=== PATIENT | female | born 1960 | race Caucasian/White ===

== ENCOUNTER 2019-11-20 16:56 | Outpatient (CLI) | payer BC, SELFPAY ==
--- NOTE | ~2019-11-20 | XR_ITS ---
XR shoulder LT min 2V, XR shoulder RT min 2V 11/20/2019 17:25 (accession [id number]), 11/20/2019 17:24 (accession [id number]) Indication: Shoulder pain. Recent injury. Procedure: 4 views each shoulder Comparison: No prior studies for comparison. Findings: Anatomic alignment. No fracture or traumatic malalignment. No significant soft tissue abnor mality. Impression: 1: No acute bone or joint abnormality. Reviewed, dictated and finalized at location A. GAGE LOAN SPECIALIST Impression: 1: No acute bone or joint abnormality. Impression: 1: No acute bone or joint abnormality.
== END 2019-11-20 16:57 | disposition home or self-care (01) ==
LOC: ANHIMG 17:01
PROVIDERS: PCP Family Medicine; Visit Provider Family Medicine
DX: M25.512 Pain in left shoulder (principal); M25.511 Pain in right shoulder
CPT/HCPCS: 73030

== ENCOUNTER 2019-11-30 08:52 | Outpatient (CLI) | payer BC, SELFPAY ==
--- NOTE | ~2019-11-30 | DEXA_ITS ---
Bone Density Report Name: Nadia Moon Age: 59 Sex: Female Ethnicity: White Date of : 1960 Indication: postmenopausal; height loss; Referring Provider: SHAWNA, ALF Study: Bone densitometry was performed. Exam Date: November 30, 2019 Accession number: [id number] Bone Density: Region BMD T-score Z-score Classification AP Spine (L1, L2, L3) 1.135 1.1 2.2 Normal Femoral Neck (Left) 0.852 0.0 1.2 Normal Total Hip (Left) 0.981 0.3 1.1 Normal Total Hip Bilateral Avg 0.929 -0.1 0.7 Normal Femoral Neck (Right) 0.837 -0.1 1.1 Normal Total Hip (Right) 0.876 -0.5 0.3 Normal World Health Organization criteria for BMD impression classify patients as: Normal (T-score at or above -1.0), Osteopenia (T-score between -1.0 and -2.5), or Osteoporosis (T-score at or below -2.5). 10-year Fracture Risk: FRAX not reported because: All T-scores for Spine Total, Hip Total, Femoral Neck at or above -1.0 Clinical Information Provided by Patient: Has used the following medications: Vitamin D Patient maximum height was 73 Menopause Age: 58 Drinks caffeinated beverages Onset of menses at age 19 Number of children 1 Impression: The patient has normal bone mass. Discussion: BONE DENSITY IS ABOVE THE MINIMUM DESIRABLE LEVEL AT ALL SKELETAL SITES TESTED. This patient?s bone mineral density is above the minimum desirable level (T-score -1.0 or better) at all sites measured. The patient should follow a healthful lifestyle (good nutrition with adequate calcium and vitamin D, and appropriate weight-bearing exercise). Follow-Up: Consider repeating this study in 5 years or sooner if there is some new clinical indication. Reported by: ROBERTO on 11/30/2019 9:33:00 AM. Reviewed, dictated and finalized at location AKaley LUND
--- NOTE | ~2019-11-30 | MM_ITS ---
EXAMINATION: MM screening [facility] BI w kenrick HISTORY: Screening mammogram TECHNIQUE: Craniocaudal and mediolateral oblique 3-D tomosynthesis images were obtained and synthetic 2-D images were generated. CAD analysis was submitted and interpreted. COMPARISON: 11/16/2013 bilateral diagnostic digital mammogram and left breast ultrasound 02/11/2013 diagnostic left digital mammogram and left breast ultrasound 07/14/2012 diagnostic left digital mammogram and left breast ultrasound 06/20/2012 bilateral digital screening mammogram BREAST PARENCHYMAL COMPOSITION: The breasts are heterogeneously dense, which may obscure small masses . FINDINGS: There is a biopsy marker on the left; history of 2 prior benign left breast biopsies. There is no evidence of suspicious mass, calcification, or architectural distortion to suggest malignancy in either breast. There has been no suspicious interval change. IMPRESSION: 1. No mammographic evidence of malignancy. 2. Recommend routine screening mammography in one year. BI-RADS Category 2: Benign finding(s). Reviewed, dictated and finalized at location A. VATOR BACKHOE OPERATOR
== END 2019-11-30 08:53 | disposition home or self-care (01) ==
LOC: ANHIMG 08:55
PROVIDERS: PCP Family Medicine; Visit Provider Nurse Practitioner
DX: Z12.31 Encounter for screening mammogram for malignant neoplasm of breast (principal); Z78.0 Asymptomatic menopausal state
CPT/HCPCS: 77063; 77067; 77080

== ENCOUNTER 2020-06-11 07:40 | Outpatient (CLI) | payer BC, SELFPAY ==
--- NOTE | ~2020-06-11 | MR_ITS ---
EXAMINATION: MR shoulder LT wo con DATE: 06/11/2020 08:46 INDICATION: Incomplete rotator cuff tear or rupture of left shoulder. TECHNIQUE: Magnetic resonance imaging (MRI) of the left shoulder was performed without intravenous co ntrast. Sequences included axial PD-weighted FS FSE, coronal oblique PD-weighted FS FSE and T2-weight ed FS FSE, and sagittal oblique T2-weighted FS FSE and T1-weighted FSE. COMPARISON: Left shoulder radiographs 11/20/2019 FINDINGS: Coracoacromial arch: The acromion undersurface is curved in morphology (type II). There is severe acromioclavicular joint osteoarthritis including inferiorly directed osteophytes. There is mild subacromial/subdeltoid bursit is. Rotator cuff: There is a full-thickness tear and articular-sided, partial-thickness tear of supraspinatus tendon me asuring 22 mm anterior to posterior by 26 mm proximal to distal. There is mild infraspinatus and pastor s minor tendinopathy. There is a full-thickness tear of superior subscapularis tendon. There is no as ymmetric fatty atrophy of the rotator cuff muscle bellies. Biceps tendon and glenoid labrum: There is a complete tear of proximal biceps tendon. There is a tear of superior and posterior labrum from 7:00 to 12:00 (SLAP tear). Fluid: There is a small glenohumeral joint effusion. Bones/cartilage: There is cartilage surface irregularity of glenoid and humeral head. IMPRESSION: 1. Full-thickness rotator cuff tear. 2. Mild glenohumeral joint chondrosis. SLAP tear. 3. Complete tear of proximal biceps tendon. 4. Small glenohumeral joint effusion and mild subacromial/subdeltoid bursitis. 5. Severe acromioclavicular joint osteoarthritis. Reviewed, dictated and finalized at location A.
== END 2020-06-11 07:41 | disposition home or self-care (01) ==
PROVIDERS: PCP Family Medicine; Visit Provider Orthopaedic Surgery
DX: M75.112 Incomplete rotator cuff tear or rupture of left shoulder, not specified as traumatic (principal); S43.432A Superior glenoid labrum lesion of left shoulder, initial encounter; S46.112A Strain of muscle, fascia and tendon of long head of biceps, left arm, initial encounter; M75.52 Bursitis of left shoulder; M25.412 Effusion, left shoulder; M19.012 Primary osteoarthritis, left shoulder
CPT/HCPCS: 73221

== ENCOUNTER 2020-06-29 02:23 | Outpatient (CLI) | payer BC, SELFPAY ==
[2020-06-29 18:24] LABS: SARS-CoV-2 RNA PCR Negative
== END 2020-06-29 02:24 | disposition home or self-care (01) ==
LOC: ANHCOVIDDT 02:23
PROVIDERS: PCP Family Medicine; Visit Provider Orthopaedic Surgery
DX: Z01.812 Encounter for preprocedural laboratory examination (principal); Z20.828 Contact with and (suspected) exposure to other viral communicable diseases
CPT/HCPCS: 87635; C9803; U0003

== ENCOUNTER 2020-07-01 00:18 | Day surgery (SDC) | payer BC, SELFPAY ==
[2020-06-14 15:37] VITALS: BMI 23.1
[2020-07-01] VITALS (8 sets, daily range): BP systolic 95–137; BP diastolic 67–88; PULSE 63–80; RESP 12–20; TEMP 36.1–36.4; O2SAT 97–100
--- NOTE | 2020-07-01 07:11 | WPDHPUPDATE1 ---
History and Physical Update Update Date/Time: 07/01/20 07:11 History and Physical has been reviewed, including an updated exam of the patient. There are NO changes in the patient's condition. Risks, benefits, and alternatives have been discussed and questions answered. Patient agrees to proceed with procedure.
[2020-07-01] MEDS: ACETAMINOPHEN 500 MG TABLET 1000 MG PO (07:19)
[2020-07-01] MEDS: LACTATED RINGERS 1,000 ML 30 ML IV CONT ×3 (07:25→12:11)
--- NOTE | 2020-07-01 08:34 | WPDANESPNB ---
Anes - Peripheral Nerve Block Date/Time: 07/01/20 08:34 I have discussed with the patient/family/POA the placement of a peripheral nerve block for post-operative pain management, including associated risks, benefits, complications, and side effects. Alternative methods of post-operative analgesia were detailed. Questions were solicited and answers provided to the satisfaction of the patient/family/POA. Time-Out: A pre-procedural Time-Out was completed immediately before starting the procedure and confirmed: Patient Identification, Site, Procedure, Patient Position and the Availability of Requisite Equipment. Clinical Indications: Acute post-operative pain management requested by the operative surgeon. Nerve Block Insertion Note Anes-nerve block: interscalene left Patient position: supine Skin prep: chlorhexidine Needle: 22 gauge, stimulating, insulated echogenic needle. Needle length: 50 mm Technique: ultrasound Injectate: bupivacaine 0.5% with epi 5 mcg/ml (30) and dexamethasone (mg) (8) Observations: tolerated well Complications: none Procedure start time:: 820 Procedure end time:: 829
--- NOTE | 2020-07-01 08:36 | WPDANESEPPF ---
Anes - Initial Pre Proc Eval Procedure: Operation Date: 07/01/20 09:00 Proposed Procedures p Left Shoulder Arthroscopic Rotator Cuff Repair, Biceps and Labral Debridement, Subacromial Decompression - Delgado Graham MD Date/Time: 07/01/20 08:36 Surgeon: Delgado Graham MD Pre Op Diagnosis: complete tear left rotator cuff tear, bicep tear Patient Data Age: 59 Gender: F Height: 6 ft 1 in Weight: 79.4 kg Last Vital Signs Temp 36.4 C 07/01/20 07:12 Pulse 77 07/01/20 07:12 Resp 20 07/01/20 07:12 BP 115/74 07/01/20 07:12 Pulse Ox 100 07/01/20 07:12 Allergies Allergy/AdvReac Type Severity Reaction Status Date / Time etodolac Allergy Severe Hives, Verified 07/01/20 07:47 nausea/vomiting Penicillins Allergy Severe Hives Verified 07/01/20 07:47 ciprofloxacin [From Cipro] AdvReac Severe Diarrhea Verified 07/01/20 07:47 Home Medications Medication Instructions Recorded Confirmed Type ergocalciferol (vitamin D2) 50,000 50,000 unit PO WEEKLY 10/23/19 07/01/20 History unit tablet levothyroxine 175 mcg tablet 175 mcg PO DAILY 10/23/19 07/01/20 History tramadol 50 mg tablet 50 mg PO BID PRN #30 tablet 06/13/20 07/01/20 Rx celecoxib 200 mg PO DAILY 06/14/20 07/01/20 History Patient hx anesthesia problems: none Family hx anesthesia problems: none PMFSH Past Medical History Medical History Depression Esophageal reflux Hypothyroidism Partial tear of left rotator cuff Vitamin deficiency Surgical History Surgical History History of repair of ACL (~1983) Family History Family History Other Diabetes mellitus Family history of alcoholism Family history of arthritis Family history of malignant neoplasm Social History Social History Smoking packs per day: 0.5 Smoking cigarettes per day: 10.0 Years smoked: 25 Smoking pack-years: 12.50 Smoking status: Former smoker Tobacco type: cigarettes Additional smoking assessment comments: QUIT 2006 Alcohol intake: current Substance use: current Substance use type: marijuana Last use: 06/14/20 Spiritual care concerns: No Anes - Eval Final PreProcedure Day of Procedure 07/01/20 08:36 Patient weight: normal Heart: regular rate and rhythm Lungs: clear to auscultation Airway: Mallampati scale class II Neurological: alert and oriented Last oral intake: >/= 8 hours ASA classification: II Emergent: no Anesthetic plan: proceed Anesthesia type and monitoring: general ETT and standard monitoring Informed Consent: The patient's anesthetic plan and its attendant risks and benefits were discussed with the patient/family/POA. Questions were solicited and answers provided to the satisfaction of the patient/family/POA.
[2020-07-01] MEDS: CLINDAMYCIN 900 MG/NS 50 ML 900 MG/50 ML PIGGYBACK 50 MG IVPB (08:45)
--- NOTE | 2020-07-01 11:41 | PM.PROC ---
Procedure Note - Detailed Date of procedure: 07/01/20 Pre-op diagnosis: complete tear left rotator cuff tear, bicep tear Post-op diagnosis: same Procedure performed: 1. Arthrosocopic rotator cuff repair. 2. Arthroscopic subacromial decompression. 3. Biceps tendon and labral debridement. Description of procedure: High-grade partial articular side tear; grade 4 articular side tear. The tear was completed at the supraspinatus and repaired with a single bone tunnel and 3 sutures. A horizontal mattress suture was placed laterally as well. This subscapularis had partial-thickness upper border tear. This was treated with a suture anchor and 2 simple sutures. The biceps tendon was ruptured. There was a large stump attached to the superior labrum which was torn along with the posterior superior labrum. Labral debridement and debridement of the biceps stump was performed. The tissues were quite hyperemic and friable with significant bleeding. [facility] Surgeon: Delgado Graham MD Estimated blood loss (mL): 20 Drains: No Complications: None Condition: stable Disposition: PACU Findings: Operative detail: Preoperative antibiotics were given. An interscalene block was administered in the preoperative area. The patient was bought brought to the operating room. A general anesthetic was administered. The patient was carefully positioned in the beach chair position. The head and neck were carefully positioned. The non operative extremity was also carefully positioned. The shoulder was prepped and draped in the usual sterile fashion. Examination was performed. Mild stiffness was encountered but external rotation remained approximately 70?, and there was no definite contracture. No instability. The patient is notable for very tall stature and long limbs. Standard posterior and anterior arthroscopic portals were established. Accessory lateral portals were also used as well as an accessory anterior portal for the subscapularis repair. Inflow achieved with the arthroscopic pump using saline and epinephrine. The glenohumeral joint was carefully inspected. The articular cartilage was healthy. The upper border of the subscapularis was clearly partially torn and retracted. Reduction was confirmed and it was elected to proceed with repair. A single 2.8 mm metallic anchor was placed at the lesser tuberosity. Two simple sutures were then passed through the upper border of the tendon. The retrograde suture retriever was utilized. The sutures were tied arthroscopically. The repair was quite anatomic in appearance. The glenohumeral cartilage was normal. The supraspinatus showed high-grade partial-thickness tearing. The infraspinatus showed mild partial-thickness tearing. There was no contracture. No other loose bodies or abnormalities in the axillary pouch. The rotator cuff footprint was debrided at the area of the anterior supraspinatus. The plan was to take down the superficial bursal sided rotator cuff in this area and proceed with tendon repair. The arthroscope was introduced into the subacromial space. She had significant hyperemia and bleeding was encountered through most of the procedure. Acromioplasty was performed with the arthroscopic bur. There was evidence of mild impingement from a downsloping acromion. The soft spot at the supraspinatus was taken down and the superficial intact fibers were quite thin. A single tunnel was placed using the ArthroTunneler device. Three sutures were passed medially in the tendon. A [id number] free suture was passed as well. This was used as a rip stop. The sutures were tied arthroscopically. The arthroscopic instruments were removed. The wounds were closed with 3-0 Monocryl subcuticular suture and steri strips. There were no complications. A sling was applied and the patient brought to the recovery room.
[2020-07-01] MEDS: ONDANSETRON INJ 4 MG/2 ML VIAL IV PUSH (12:02)
== END 2020-07-01 14:00 | disposition home or self-care (01) ==
PROVIDERS: PCP Family Medicine; Visit Provider Orthopaedic Surgery
PROC: (CPT 29805; principal; 2020-07-01 09:00)
DX: S46.012A Strain of muscle(s) and tendon(s) of the rotator cuff of left shoulder, initial encounter (principal); S46.212A Strain of muscle, fascia and tendon of other parts of biceps, left arm, initial encounter; X50.0XXA Overexertion from strenuous movement or load, initial encounter; G89.18 Other acute postprocedural pain; E03.9 Hypothyroidism, unspecified; Z87.891 Personal history of nicotine dependence; F12.90 Cannabis use, unspecified, uncomplicated
CPT/HCPCS: 29827; 29826; 29823; 64415; A4565; A9270; C1713; J1100; J2250; J2405; J2704; J3010; J7120

== ENCOUNTER 2023-02-12 14:02 | Outpatient (CLI) | payer OTHER, SELFPAY ==
--- NOTE | ~2023-02-12 | MM_ITS ---
EXAMINATION: MM screening [facility] BI w kenrick HISTORY: Screening mammogram TECHNIQUE: Craniocaudal and mediolateral oblique 3-D tomosynthesis images were obtained and synthetic 2-D images were generated. CAD analysis was submitted and interpreted. COMPARISON: 11/30/2019, 11/16/2013, 02/11/2013, 06/20/2012 BREAST PARENCHYMAL COMPOSITION: There are scattered areas of fibroglandular density. FINDINGS: RIGHT BREAST: An asymmetry is present in the posterior third of the lower outer breast approximately 7.5 cm from the nipple on the craniocaudal view. LEFT BREAST: No suspicious mass, calcification, or architectural distortion are identified to suggest malignancy. There has been no suspicious interval change. IMPRESSION: 1. Right breast asymmetry. 2. Additional mammographic views and possible breast ultrasound are recommended. BI-RADS Category 0: Incomplete: Needs additional imaging evaluation. Reviewed, dictated and finalized at location A. IMPRESSION: 1. Right breast asymmetry. 2. Additional mammographic views and possible breast ultrasound are recommended . BI-RADS Category 0: Incomplete: Needs additional imaging evaluation.
--- NOTE | ~2023-02-12 | DEXA_ITS ---
Bone Density Report Name: ANNE MARIE LAWLER Age: 62 Sex: Female Ethnicity: White Date of : 1960 Indication: postmenopausal; screening for osteoporosis; height loss; history of glucocorticoids; rheumatoid arthritis; Referring Provider: SHAWNA, ALF Study: Bone densitometry was performed. Exam Date: February 12, 2023 Accession number: [id number] Bone Density: Region BMD T-score Z-score Classification AP Spine(L1, L2, L3) 1.088 0.6 2.0 Normal Femoral Neck (Left) 0.784 -0.6 0.7 Normal Total Hip (Left) 0.876 -0.5 0.4 Normal Femoral Neck (Right) 0.759 -0.8 0.5 Normal Total Hip (Right) 0.807 -1.1 -0.1 Osteopenia Total Hip Mean 0.841 -0.8 0.2 Normal World Health Organization criteria for BMD impression classify patients as: Normal (T-score at or above -1.0), Osteopenia (T-score between -1.0 and -2.5), or Osteoporosis (T-score at or below -2.5). 10-year Fracture Risk(1): Major Osteoporotic Fracture 14% Hip Fracture 1.5% Reported Risk Factors: [place] (), Neck BMD=0.759, BMI=23.2, smoking, glucocorticoids, rheumatoid arthritis (1) FRAX(R) Version 3.08. Fracture probability calculated for an untreated patient. Fracture probability may be lower if the patient has received treatment. Previous Exams: Region Exam Age BMD T-score BMD Change BMD Change Date g/cm2 vs Baseline vs Previous AP Spine (L1-L3) 02/12/2023 62 1.088 0.6 -0.047 (-4.1%) -0.047 (-4.1%) 11/30/2019 59 1.135 1.1 Total Hip(Left) 02/12/2023 62 0.876 -0.5 -0.106 (-10.8% -0.106 (-10.8% 11/30/2019 59 0.981 0.3 Total Hip(Right) 02/12/2023 62 0.807 -1.1 -0.069 (-7.9%) -0.069 (-7.9%) 11/30/2019 59 0.876 -0.5 *Denotes significance at 95% confidence level, LSC for AP Spine = 0.022 g/cm2, LSC for Total Hip = 0.027 g/cm2 Clinical Information Provided by Patient: Smokes Has taken Glucocorticoids Has rheumatoid arthritis Patient maximum height was 73 Menopause Age: 58 Drinks caffeinated beverages Onset of menses at age 19 Number of children 1 Impression: The patient has low bone mass, based on the Right Total Hip T-score. The patient has an estimated ten-year risk of hip fracture of 1.5% and an estimated ten-year risk of major fracture of 14%, based on the WHO FRAX algorithm. The patient has risk factors, including: smoking, history of glucocorticoid therapy. The BMD for the AP Spine (L1-L3) decreased, changing by -4.1% sinc
== END 2023-02-12 14:03 | disposition home or self-care (01) ==
PROVIDERS: PCP Family Medicine; Visit Provider Nurse Practitioner
DX: Z12.31 Encounter for screening mammogram for malignant neoplasm of breast (principal); Z78.0 Asymptomatic menopausal state; R92.8 Other abnormal and inconclusive findings on diagnostic imaging of breast; M85.851 Other specified disorders of bone density and structure, right thigh
CPT/HCPCS: 77063; 77067; 77080

== ENCOUNTER 2025-07-15 15:46 | Outpatient (CLI) | payer OTHER, SELFPAY ==
--- NOTE | ~2025-07-15 | XR_ITS ---
XR lumbar spine 2-3V Indication: M54.16 - Radiculopathy, lumbar region Comparison: None Findings: Dextroconvex scoliosis. Grade 1 retrolisthesis of L3 on L4, no fracture. Severe loss of disc height throughout Soft tissues unremarkable Impression: No acute abnormality. Reviewed, dictated and finalized at location P. Impression: No acute abnormality.
== END 2025-07-15 15:47 | disposition home or self-care (01) ==
LOC: MICIMG 15:48
PROVIDERS: PCP Family Medicine
DX: M54.16 Radiculopathy, lumbar region (principal)
CPT/HCPCS: 72100